=== PATIENT | male | born 1945 | race Caucasian/White ===

== ENCOUNTER 2022-10-24 17:03 | Emergency (ER) | payer MEDICARE, BC | END 2022-10-24 19:27 | disposition home or self-care (01) | LOC: JD.ED 17:03 | DX: I82.402 Acute embolism and thrombosis of unspecified deep veins of left lower extremity (principal); C91.10 Chronic lymphocytic leukemia of B-cell type not having achieved remission; Z79.01 Long term (current) use of anticoagulants | CPT/HCPCS: 99283; 99284 ==

== ENCOUNTER 2022-10-27 09:12 | Emergency (ER) | payer MEDICARE, BC ==
[2022-10-27 10:53] LABS: BASOPHILS ABSOLUTE AUTO 0.01 K/mm3 (0.01-0.08); BASOPHILS PERCENT AUTO 0.1 % (0.1-1.2); EOSINOPHILS PERCENT AUTO 0 (0.8-7.0); HEMATOCRIT 36.4 % (40.1-51.0); HEMOGLOBIN 11.8 gm/dl (13.7-17.5); IMMATURE GRAN ABSOLUTE AUTO 0.01 K/mm3 (0.00-0.10); IMMATURE GRAN PERCENT AUTO 0.1 % (<=1.0); LYMPHOCYTES ABSOLUTE AUTO 1.05 K/mm3 (1.32-3.57); LYMPHOCYTES PERCENT AUTO 10.6 % (21.8-53.1); MEAN CORPUSCULAR HGB CONC 32.4 g/dl (32.2-35.5); MEAN CORPUSCULAR VOLUME 98.6 fl (79.0-92.2); MEAN PLATELET VOLUME 9.9 fl (9.4-12.3); MONOCYTES ABSOLUTE AUTO 0.86 K/mm3 (0.30-0.82); MONOCYTES PERCENT AUTO 8.7 % (5.3-12.2); NEUTROPHILS ABSOLUTE AUTO 7.98 K/mm3 (1.78-5.38); NEUTROPHILS PERCENT AUTO 80.5 % (34.0-67.9); PLATELET COUNT,PLT 206 K/mm3 (163-337); RED BLOOD CELL COUNT 3.69 M/mm3 (4.63-6.08); WHITE BLOOD CELL COUNT,WBC 9.91 K/mm3 (4.23-9.07)
[2022-10-27 11:17] LABS: A/G RATIO 0.7 (1-2); ALBUMIN 2.8 g/dl (3.4-5.0); ANION GAP 11.2 (5-15); BILIRUBIN TOTAL 0.5 mg/dL (0.2-1.0); BUN/CREATININE RATIO 10.8 (14-18); C-REACTIVE PROTEIN 9.5 mg/dL (<1.0); CALCIUM 8.8 mg/dL (8.5-10.1); CREATININE 1.2 mg/dL (0.7-1.3); EST CRCL DRUG DOSING (CG) 54.03 mL/min; POTASSIUM,K 4.2 mEq/L (3.5-5.1); PROTEIN TOTAL,TP 6.6 g/dl (6.4-8.2)
[2022-10-27] MEDS ORDERED: Lidocaine 1% 10 ML MDV ONE (11:37)
[2022-10-27] MEDS ORDERED: Lidocaine 1% 10 ML MDV INJECT ONE (11:59)
[2022-10-27 13:33] LABS: APPEARANCE SYNOVIAL FLUID CLOUDY (CLEAR); COLOR,SYNOVIAL FLUID YELLOW
[2022-10-27 13:34] LABS: RBC,SYNOVIAL FLUID 0.005 10*6/uL (0.00-0.003); SITE,SYNOVIAL FLUID LEFT KNEE; WBC,SYNOVIAL FLUID 0.605 k/mm*3 (0.200-0.600)
[2022-10-27 13:36] LABS: VOLUME SYNOVIAL FLUID 20
== END 2022-10-27 14:01 | disposition home or self-care (01) ==
LOC: JD.ED 09:12
DX: M17.12 Unilateral primary osteoarthritis, left knee (principal); M25.462 Effusion, left knee
CPT/HCPCS: 20610; 36415; 80053; 85025; 85652; 86140; 87070; 87075; 87205; 89060; 99283; J3490

== ENCOUNTER 2022-10-31 05:30 | Emergency (ER) | payer MEDICARE, BC ==
[2022-10-31 06:45] LABS: BASOPHILS ABSOLUTE AUTO 0.01 K/mm3 (0.01-0.08); BASOPHILS PERCENT AUTO 0.1 % (0.1-1.2); EOSINOPHILS PERCENT AUTO 0 (0.8-7.0); HEMATOCRIT 36.3 % (40.1-51.0); HEMOGLOBIN 11.9 gm/dl (13.7-17.5); IMMATURE GRAN ABSOLUTE AUTO 0.02 K/mm3 (0.00-0.10); IMMATURE GRAN PERCENT AUTO 0.2 % (<=1.0); LYMPHOCYTES ABSOLUTE AUTO 0.66 K/mm3 (1.32-3.57); LYMPHOCYTES PERCENT AUTO 6.9 % (21.8-53.1); MEAN CORPUSCULAR HEMOGLOBIN 31.9 pg (25.7-32.2); MEAN CORPUSCULAR HGB CONC 32.8 g/dl (32.2-35.5); MEAN CORPUSCULAR VOLUME 97.3 fl (79.0-92.2); MEAN PLATELET VOLUME 9.4 fl (9.4-12.3); MONOCYTES PERCENT AUTO 7.3 % (5.3-12.2); NEUTROPHILS PERCENT AUTO 85.5 % (34.0-67.9); PLATELET COUNT,PLT 229 K/mm3 (163-337); RED BLOOD CELL COUNT 3.73 M/mm3 (4.63-6.08); WHITE BLOOD CELL COUNT,WBC 9.59 K/mm3 (4.23-9.07)
[2022-10-31] MEDS ORDERED: Sodium Chloride 0.9% 10 ML Syringe FLUSH PRN ×2 (06:57→07:46)
[2022-10-31] MEDS ORDERED: HYDROmorphone 0.5 MG/0.5 ML Syringe IVPUSH ONE (06:59)
[2022-10-31 07:08] LABS: A/G RATIO 0.7 (1-2); ALBUMIN 2.7 g/dl (3.4-5.0); ANION GAP 14.2 (5-15); BILIRUBIN TOTAL 0.5 mg/dL (0.2-1.0); BUN/CREATININE RATIO 11.8 (14-18); CALCIUM 8.8 mg/dL (8.5-10.1); CREATININE 1.1 mg/dL (0.7-1.3); EST CRCL DRUG DOSING (CG) 58.95 mL/min; POTASSIUM,K 4.2 mEq/L (3.5-5.1); PROTEIN TOTAL,TP 6.8 g/dl (6.4-8.2)
[2022-10-31] MEDS ORDERED: Iopamidol 755 Mg/ML 100 ML Bottle IVPUSH ONE (07:46)
[2022-10-31] MEDS ORDERED: Sodium Chloride 0.9% 100 ML IV SCH (08:00)
[2022-10-31] MEDS ORDERED: methylPREDNISolone Sodium Succinate 125 MG/2 ML SDV IVPUSH ONE (09:21)
== END 2022-10-31 11:40 | disposition home or self-care (01) ==
LOC: JD.ED 05:30
DX: S22.42XA Multiple fractures of ribs, left side, initial encounter for closed fracture (principal); M25.462 Effusion, left knee; M17.12 Unilateral primary osteoarthritis, left knee; M06.9 Rheumatoid arthritis, unspecified
CPT/HCPCS: 36415; 71275; 73552; 80053; 84484; 85025; 93005; 93971; 96374; 96375; 99284; J1170; J2930; J3490; Q9967; 93010

== ENCOUNTER 2023-01-14 22:10 | Emergency (ER) | payer MEDICARE, BC ==
[2023-01-14] MEDS ORDERED: HYDROmorphone 1 MG/ML Syringe IM ONE (23:18)
[2023-01-14] MEDS ORDERED: Ondansetron 4 MG Tab.DIS PO ONE (23:30)
[2023-01-15] MEDS ORDERED: HYDROmorphone 1 MG/ML Syringe IM ONE (00:06)
== END 2023-01-15 02:13 | disposition home or self-care (01) ==
LOC: JD.ED 22:10
DX: M25.50 Pain in unspecified joint (principal); I25.10 Atherosclerotic heart disease of native coronary artery without angina pectoris; I50.9 Heart failure, unspecified; I11.0 Hypertensive heart disease with heart failure; Z86.718 Personal history of other venous thrombosis and embolism
CPT/HCPCS: 96372; 99283; A9270; J1170

== ENCOUNTER 2024-07-31 22:11 | Emergency (ER) | payer BC, MEDICARE ==
[2024-08-01 00:05] LABS: BASOPHILS PERCENT AUTO 0.1 % (0.0-1.0); HEMATOCRIT 36.2 % (42.0-52.0); IMMATURE GRAN ABSOLUTE AUTO 0.05 K/mm3 (0.00-0.05); IMMATURE GRAN PERCENT AUTO 0.6 % (0.0-0.4); LYMPHOCYTES ABSOLUTE AUTO 0.6 K/mm3 (1.0-4.8); LYMPHOCYTES PERCENT AUTO 7.2 % (24.0-44.0); MEAN CORPUSCULAR HEMOGLOBIN 30.8 pg (28.0-32.0); MEAN CORPUSCULAR HGB CONC 33.1 g/dl (32.0-36.0); MEAN CORPUSCULAR VOLUME 93.1 fl (83.0-99.0); MEAN PLATELET VOLUME 9.5 fl (9.4-12.4); MONOCYTES ABSOLUTE AUTO 0.4 K/mm3 (0.0-0.8); MONOCYTES PERCENT AUTO 4.6 % (0.0-8.0); NEUTROPHILS ABSOLUTE AUTO 7.1 K/mm3 (1.8-7.7); NEUTROPHILS PERCENT AUTO 87.5 % (41.0-71.0); PLATELET COUNT,PLT 195 K/mm3 (150-400); RED BLOOD CELL COUNT 3.89 M/mm3 (4.52-5.90); WHITE BLOOD CELL COUNT,WBC 8.11 K/mm3 (3.9-11.3)
[2024-08-01 00:28] LABS: A/G RATIO 0.8 (1-2); ALBUMIN 2.8 g/dl (3.4-5.0); ANION GAP 11.9 (5-15); BILIRUBIN TOTAL 0.5 mg/dL (0.2-1.0); C-REACTIVE PROTEIN 6.05 mg/dL (<0.30); CALCIUM 8.7 mg/dL (8.5-10.1); EST CRCL DRUG DOSING (CG) 62.75 mL/min; POTASSIUM,K 3.9 mEq/L (3.5-5.1); PROTEIN TOTAL,TP 6.3 g/dl (6.4-8.2)
[2024-08-01 00:30] LABS: LACTIC ACID 0.7 mmol/L (0.4-2.0)
[2024-08-01] MEDS ORDERED: Naloxone 0.4 MG/ML SDV IVPUSH PRN (02:06)
[2024-08-01] MEDS: HYDROmorphone 1 MG/ML Syringe IM ONE (02:18)
== END 2024-08-01 03:00 | disposition home or self-care (01) ==
LOC: JD.ED 22:11
DX: M79.18 Myalgia, other site (principal); M79.651 Pain in right thigh; E03.9 Hypothyroidism, unspecified; Z79.899 Other long term (current) drug therapy; Z79.02 Long term (current) use of antithrombotics/antiplatelets; Z90.49 Acquired absence of other specified parts of digestive tract; Z95.5 Presence of coronary angioplasty implant and graft
CPT/HCPCS: 36415; 71045; 71045-26; 80053; 82550; 83605; 85025; 86140; 87428-QW; 93971-26-RT; 93971-RT; 96372; 99283; 99284; J1171